=== PATIENT | female | born 2000 | race Caucasian/White ===

== ENCOUNTER → 2020-04-29 | Outpatient (CLI) | payer OTHER | END | disposition home or self-care (01) | LOC: LABWHC1 15:48 | PROVIDERS: ATTEND Emergency Medicine | DX: Z20.828 Contact with and (suspected) exposure to other viral communicable diseases (principal) | CPT/HCPCS: U0003; C9803 ==

== ENCOUNTER 2021-09-30 21:27 | Emergency (ER) | payer OTHER ==
[2021-09-30 22:06] VITALS: BP 138/72; PULSE 122; RESP 18; TEMP 101.5
[2021-09-30] MEDS ORDERED: IBUPROFEN 400 MG TAB PO STA (22:27)
--- NOTE | 2021-10-01 00:32 | ED ---
ENT HPI - General Chief complaint: ENT Stated complaint: Sore Throat,SOB Time Seen by Provider: 10/01/21 00:31 Source: patient Limitations: no limitations - History of Present Illness Initial comments: Helen is a healthy 21-year-old female who presents the emergency department today for evaluation of 1 day of sore throat, ear pressure, tender anterior cervical lymphadenopathy and fever. No nausea or vomiting. Patient reports a mild headache. She took one dose of Tylenol prior to coming to the hospital. - Related Data Allergies Allergy/AdvReac Type Severity Reaction Status Date / Time amoxicillin Allergy Rash/Hives Verified 09/30/21 22:03 Review of Systems ROS Statement: Those systems with pertinent positive or pertinent negative responses have been documented in the HPI. ROS Other: All systems not noted in ROS Statement are negative. Past Medical History Past Medical History: No Reported History History of Any Multi-Drug Resistant Organisms: None Reported Past Surgical History: No Surgical Hx Reported Past Psychological History: No Psychological Hx Reported Smoking Status: Vaper Past Alcohol Use History: Occasional Past Drug Use History: None Reported General Exam - General Exam Comments Initial Comments: Physical Exam GENERAL: Patient is well-developed and well-nourished. Patient is nontoxic and well- hydrated and is in no distress. HENT: Normocephalic, Atraumatic. Moist oral mucosa, no erythema or exudates TMs clear bilaterally EYES: PERRL, EOMI PULMONARY: Unlabored respirations. No audible rales rhonchi or wheezing was noted. CARDIOVASCULAR: Tachycardic, regular heart rate approximately 105 on evaluation ABDOMEN: Soft and nontender with normal bowel sounds. SKIN: Skin is clear with no lesions or rashes and otherwise unremarkable. : Deferred NEUROLOGIC: Patient is alert and oriented x3. Moving all extremities spontaneously MUSCULOSKELETAL: Normal extremities with adequate strength and full range of motion. No lower extremity swelling or edema. No calf tenderness. PSYCHIATRIC: Normal psychiatric evaluation. Limitations: no limitations Course Vital Signs 09/30/21 22:04 Temperature 101.5 F H Pulse Rate 122 H Respiratory 18 Rate Blood Pressure 138/72 O2 Sat by Pulse 99 Oximetry Medical Decision Making - Medical Decision Making Patient received Motrin for fever, patient was seen and evaluated she is negative for influenza A and COVID. Fever resolved upon my evaluation temperature is 98.6 oral, heart rate is improving. Supportive care was recommended I suspect the patient has a virus. I advised patient if she has greater than 5 days his symptoms she should be retested for mono. All questions pertaining care were answered return parameters were discussed patient is discharged home in stable condition. - Lab Data Lab Results 09/30/21 09/30/21 09/30/21 Range/Units 22:54 22:54 22:54 Coronavirus (PCR) Not Detected (Not Detectd) Influenza Type A RNA Not Detected (Not Detectd) Influenza Type B (PCR) Not Detected (Not Detectd) Group A Strep Rapid Negative (Negative) Disposition Clinical Impression: Viral illness Disposition: HOME SELF-CARE Condition: Stable Additional Instructions: Alternate Tylenol and Motrin every 3 hours, make sure drinking plenty of fluids to stay hydrated, try drinking warm liquids honey in it too severe throat. If her symptoms last crit in 5 days follow with her primary care or return to the ER for testing for mono Is patient prescribed a controlled substance at d/c from ED?: No Referrals: None,Stated [Primary Care Provider] - 1-2 days
== END 2021-10-01 02:21 | disposition home or self-care (01) ==
LOC: EC 21:27
DX: B34.9 Viral infection, unspecified (principal); F17.290 Nicotine dependence, other tobacco product, uncomplicated; Z20.822 Contact with and (suspected) exposure to COVID-19
CPT/HCPCS: 87081; 87430; 87502; 87635; 99284

== ENCOUNTER 2021-10-08 12:06 | Emergency (ER) | payer OTHER ==
[2021-10-08 12:36] VITALS: RESP 16; TEMP 98.2
--- NOTE | 2021-10-08 15:41 | ED ---
General Adult HPI - General Chief complaint: Recheck/Abnormal Lab/Rx Stated complaint: Revisit/Fever/Congestion/Ear Infection Time Seen by Provider: 10/08/21 13:20 Source: patient, RN notes reviewed, old records reviewed Mode of arrival: ambulatory Limitations: no limitations - History of Present Illness Initial comments: Patient is a 21-year-old female withpast medical history presents to emergency Department as a revisit for mono testing. For possibly one week, she has been having intermittent subjective fevers, mild sore throat, fatigue, as well as bilateral ear pressure. Was told by a previous ER physician to return if symptoms did not improve to get tested for mono. Covid, flu, strep throat testing previously were negative. Denies any significant cough. States that symptoms are somewhat improved but there is still persistent which is why she presents for further evaluation. Denies any chest pain, shortness breath, abdominal pain, nausea, vomiting. No known sick contacts. Presents for further evaluation at this time. - Related Data Home Medications Medication Instructions Recorded Confirmed V[place]ura 1 tab PO HS 10/08/21 10/08/21 Allergies Allergy/AdvReac Type Severity Reaction Status Date / Time amoxicillin Allergy Rash/Hives Verified 10/08/21 13:42 Review of Systems ROS Statement: Those systems with pertinent positive or pertinent negative responses have been documented in the HPI. Review of Systems: CONST: Denies fever EYES: Denies blurry vision ENT: Endorses nasal congestion C/V: Denies Chest pain RESP: Denies shortness of breath GI: Denies abdominal pain : Denies dysuria SKIN: Denies rash. MSK: Denies joint pain. NEURO: Denies headache ROS Other: All systems not noted in ROS Statement are negative. Past Medical History Past Medical History: No Reported History History of Any Multi-Drug Resistant Organisms: None Reported Past Surgical History: No Surgical Hx Reported Past Psychological History: No Psychological Hx Reported Smoking Status: Never smoker, Vaper Past Alcohol Use History: Occasional Past Drug Use History: None Reported General Exam - General Exam Comments Initial Comments: General: Appears in no acute distress. HEAD: Normal with no signs of head trauma. EYES: EOMI. ENT: Hearing grossly intact, normal oropharynx. Bilateral TMs are unremarkable. Posterior oropharynx within normal limits and unremarkable. No erythema. RESPIRATORY: Clear breath sounds bilaterally. No wheezes, rales, or rhonchi. No increased work of breathing. No hypoxia. C/V: Regular rate and rhythm. S1 and S2 auscultated, no edema, peripheral pulses 2+ and intact throughout ABD: Abd is soft, nontender, nondistended EXT: Normal range of motion, no obvious deformity SKIN: No rashes or lesions observed on exposed skin. NEURO: Alert and oriented 4. Limitations: no limitations Course Vital Signs 10/08/21 10/08/21 12:31 15:47 Temperature 98.2 F 98.2 F Pulse Rate 98 78 Respiratory 16 16 Rate Blood Pressure 141/78 131/78 O2 Sat by Pulse 98 98 Oximetry Medical Decision Making - Medical Decision Making Based on patient's presentation and physical exam, I'm concerned for upper respiratory illness. We will obtain heterophile antibody testing as well as repeat viral Covid, flu testing. Strep also be repeated. She was in agreement with this plan. Declines any analgesic medications at this time. Laboratory studies are remarkable for negative Covid, flu, heterophile, strep testing. I discussed results with the patient. I believe it is safer to be discharged home at this time. She'll continue [id number] decongestions at home. Will follow up with her PCP in the next 48 hours. I instructed the patient to follow up with their PCP in the next 3 days. I explained that the patient should return to the emergency department if they experience any worsening symptoms. Strict return precautions were discussed with the patient. The patient expressed understanding of these instructions. I answered all questions that the patient had. The patient was discharged home in good condition with their prescriptions and follow up information. - Lab Data Lab Results 10/08/21 10/08/21 10/08/21 Range/Units 13:44 13:44 14:20 Coronavirus (PCR) Not Detected (Not Detectd) Heterophile Antibody Negative (Negative) Influenza Type A RNA Not Detected (Not Detectd) Influenza Type B (PCR) Not Detected (Not Detectd) Group A Strep Rapid (Negative) 10/08/21 Range/Units 14:20 Coronavirus (PCR) (Not Detectd) Heterophile Antibody (Negative) Influenza Type A RNA (Not Detectd) Influenza Type B (PCR) (Not Detectd) Group A Strep Rapid Negative (Negative) Disposition Clinical Impression: Nasal congestion Disposition: HOME SELF-CARE Condition: Good Instructions (If sedation given, give patient instructions): Upper Respiratory Infection (ED) Is patient prescribed a controlled substance at d/c from ED?: No Referrals: None,Stated [Primary Care Provider] - 1-2 days Time of Disposition: 15:35
[2021-10-08 15:47] VITALS: BP 131/78; PULSE 78
== END 2021-10-08 15:47 | disposition home or self-care (01) ==
LOC: EC 12:06
DX: R09.81 Nasal congestion (principal); R50.9 Fever, unspecified; Z20.822 Contact with and (suspected) exposure to COVID-19; Z88.0 Allergy status to penicillin
CPT/HCPCS: 36415; 86308; 87081; 87430; 87502; 87635; 99283

== ENCOUNTER 2021-12-27 03:51 | Emergency (ER) | payer OTHER ==
[2021-12-27 04:24] VITALS: BP 131/83; PULSE 87; RESP 16; TEMP 98
[2021-12-27] MEDS ORDERED: SODIUM CHLORIDE 0.9% 1,000 ML IV STA (06:23)
[2021-12-27 06:42] LABS: Basophils # (A) 0.1 k/uL (0-0.2); Basophils % (A) 1 %; Eosinophils # (A) 0.1 k/uL (0-0.7); Eosinophils % (A) 1 %; HCT 43.4 % (34.0-46.0); HGB 14.1 gm/dL (11.4-16.0); Lymphocytes # (A) 2.3 k/uL (1.0-4.8); Lymphocytes % (A) 32 %; MCH 31.2 pg (25.0-35.0); MCHC 32.5 g/dL (31.0-37.0); MCV 95.9 fL (80.0-100.0); Mean Platelet Volume 6.7; Monocytes # (A) 0.4 k/uL (0-1.0); Monocytes % (A) 5 %; Neutrophils # (A) 4.3 k/uL (1.3-7.7); Neutrophils % (A) 59 %; Platelet Count 327 k/uL (150-450); RBC 4.53 m/uL (3.80-5.40); WBC 7.3 k/uL (3.8-10.6)
[2021-12-27 06:48] LABS: Appearance,Urine Cloudy (Clear); Bacteria,Urine Rare /hpf; Bilirubin,Urine Negative (Negative); Blood,Urine Negative (Negative); Color,Urine Yellow; Glucose,Urine (UA) Negative (Negative); Ketones,Urine Negative (Negative); Leukocyte Esterase,Urine Negative (Negative); Mucus,Urine Rare /hpf; Nitrite,Urine Negative (Negative); Protein,Urine Negative (Negative); RBC,Urine 1 /hpf (0-5); Specific Gravity,Urine 1.022 (1.001-1.035); Squamous Epithelial Cell,Urine 9 /hpf (0-4); Urobilinogen,Urine <2.0 mg/dL (<2.0); WBC,Urine 2 /hpf (0-5)
[2021-12-27] MEDS ORDERED: diphenhydrAMINE 50 MG/ML 1 ML VIAL IVP STA (06:49)
[2021-12-27] MEDS ORDERED: METOCLOPRAMIDE 5 MG/ML 2 ML VIAL IVP STA (06:49)
[2021-12-27] MEDS ORDERED: MAG HYDROX/AL HYDROX/SIMETH 30 ML, HYOSCYAMINE ELIXIR 10 ML, LIDOCAINE VISCOUS 2% 10 ML PO STA ×3 (06:49)
[2021-12-27 06:51] LABS: ALT 29 U/L (4-34); AST 27 U/L (14-36); African American GFR (CKD) >90 (>60 ml/min/1.73 sqM); Albumin 4.4 g/dL (3.5-5.0); Alkaline Phosphatase 64 U/L (38-126); Amylase 84 U/L (30-110); Anion Gap 10 mmol/L; Blood Urea Nitrogen 12 mg/dL (7-17); Carbon Dioxide 24 mmol/L (22-30); Chloride 105 mmol/L (98-107); Glucose 94 mg/dL (74-99); Lipase 104 U/L (23-300); Non-African American GFR(CKD) >90 (>60 ml/min/1.73 sqM); Potassium 3.9 mmol/L (3.5-5.1); Sodium 139 mmol/L (137-145); Total Bilirubin 0.4 mg/dL (0.2-1.3); Total Protein 7.6 g/dL (6.3-8.2)
--- NOTE | 2021-12-27 06:51 | ED ---
Abdominal Pain HPI - General Chief Complaint: Abdominal Pain Stated Complaint: abd pain, back pain Time Seen by Provider: 12/27/21 06:08 Source: patient, RN notes reviewed Mode of arrival: ambulatory Limitations: no limitations - History of Present Illness Initial Comments: This a 29-year-old female presents emergency Department chief complaint of upper abdominal pain. Patient states started around 3 AM. Patient states that it does wax and wane feels that something is twisting her stomach. Patient states that radiates down states her back. She has meant to some nausea vomiting no chest pain or shortness breath she does have known history of reflux in which she occasionally takes omeprazole she does not take it daily as prescribed. She has no cords dysuria hematuria diarrhea constipation denies any chance . She states symptoms are worse when she lays down. - Related Data Home Medications Medication Instructions Recorded Confirmed [place] 1 tab PO HS 10/08/21 10/08/21 Previous Rx's Medication Instructions Recorded Omeprazole [PriLOSEC] 40 mg PO DAILY #14 cap 12/27/21 Ondansetron Odt [Zofran Odt] 4 mg PO Q8HR PRN #10 tab 12/27/21 Sucralfate [Carafate] 1 gm PO BID #14 tablet 12/27/21 Allergies Allergy/AdvReac Type Severity Reaction Status Date / Time amoxicillin Allergy Rash/Hives Verified 10/08/21 13:42 Review of Systems ROS Statement: Those systems with pertinent positive or pertinent negative responses have been documented in the HPI. ROS Other: All systems not noted in ROS Statement are negative. Past Medical History Past Medical History: No Reported History History of Any Multi-Drug Resistant Organisms: None Reported Past Surgical History: No Surgical Hx Reported Past Psychological History: No Psychological Hx Reported Smoking Status: Never smoker, Vaper Past Alcohol Use History: Occasional Past Drug Use History: None Reported General Exam Limitations: no limitations General appearance: alert, in no apparent distress Head exam: Present: atraumatic, normocephalic, normal inspection Eye exam: Present: normal appearance, PERRL, EOMI. Absent: scleral icterus, conjunctival injection, periorbital swelling ENT exam: Present: normal exam, normal oropharynx, mucous membranes moist Neck exam: Present: normal inspection, full ROM. Absent: tenderness, meningismus, lymphadenopathy Respiratory exam: Present: normal lung sounds bilaterally. Absent: respiratory distress, wheezes, rales, rhonchi, stridor Cardiovascular Exam: Present: regular rate, normal rhythm, normal heart sounds. Absent: systolic murmur, diastolic murmur, rubs, gallop, clicks GI/Abdominal exam: Present: soft, tenderness, normal bowel sounds. Absent: distended, guarding, rebound, rigid Back exam: Absent: CVA tenderness (R), CVA tenderness (L) Neurological exam: Present: alert Skin exam: Present: warm, dry, intact, normal color. Absent: rash Course Vital Signs 12/27/21 04:22 Temperature 98 F Pulse Rate 87 Respiratory 16 Rate Blood Pressure 131/83 O2 Sat by Pulse 99 Oximetry Medical Decision Making - Medical Decision Making 20-year-old presents from for abdominal pain. Patient feels better after GI cocktail, labs unremarkable. Patient we discharged she is advised take her omeprazole daily as directed she was also given carefully return parameters were discussed. - Lab Data Result diagrams: 12/27/21 06:35 12/27/21 06:35 Lab Results 12/27/21 12/27/21 12/27/21 Range/Units 06:35 06:35 06:35 WBC 7.3 (3.8-10.6) k/uL RBC 4.53 (3.80-5.40) m/uL Hgb 14.1 (11.4-16.0) gm/dL Hct 43.4 (34.0-46.0) % MCV 95.9 (80.0-100.0) fL MCH 31.2 (25.0-35.0) pg MCHC 32.5 (31.0-37.0) g/dL RDW 12.0 (11.5-15.5) % Plt Count 327 (150-450) k/uL MPV 6.7 Neutrophils % 59 % Lymphocytes % 32 % Monocytes % 5 % Eosinophils % 1 % Basophils % 1 % Neutrophils # 4.3 (1.3-7.7) k/uL Lymphocytes # 2.3 (1.0-4.8) k/uL Monocytes # 0.4 (0-1.0) k/uL Eosinophils # 0.1 (0-0.7) k/uL Basophils # 0.1 (0-0.2) k/uL Sodium 139 (137-145) mmol/L Potassium 3.9 (3.5-5.1) mmol/L Chloride 105 (98-107) mmol/L Carbon Dioxide 24 (22-30) mmol/L Anion Gap 10 mmol/L BUN 12 (7-17) mg/dL Creatinine 0.77 (0.52-1.04) mg/dL Est GFR (CKD-EPI)AfAm >90 (>60 ml/min/1.73 sqM) Est GFR (CKD-EPI)NonAf >90 (>60 ml/min/1.73 sqM) Glucose 94 (74-99) mg/dL Plasma Lactic Acid [place] (0.7-2.0) mmol/L Calcium 9.0 (8.4-10.2) mg/dL Total Bilirubin 0.4 (0.2-1.3) mg/dL AST 27 (14-36) U/L ALT 29 (4-34) U/L Alkaline Phosphatase 64 (38-126) U/L Total Protein 7.6 (6.3-8.2) g/dL Albumin 4.4 (3.5-5.0) g/dL Amylase 84 (30-110) U/L Lipase 104 (23-300) U/L Urine Color Yellow Urine Appearance Cloudy H (Clear) Urine pH 5.0 (5.0-8.0) Ur Specific [place] 1.022 (1.001-1.035) Urine Protein Negative (Negative) Urine Glucose (UA) Negative (Negative) Urine Ketones Negative (Negative) Urine Blood Negative (Negative) Urine Nitrite Negative (Negative) Urine Bilirubin Negative (Negative) Urine Urobilinogen <2.0 (<2.0) mg/dL Ur Leukocyte Esterase Negative (Negative) Urine RBC 1 (0-5) /hpf Urine WBC 2 (0-5) /hpf Ur Squamous Epith Cells 9 H (0-4) /hpf Urine Bacteria Rare H (None) /hpf Urine Mucus Rare H (None) /hpf Urine HCG, Qual (Not Detectd) 12/27/21 12/27/21 Range/Units 06:35 06:35 WBC (3.8-10.6) k/uL RBC (3.80-5.40) m/uL Hgb (11.4-16.0) gm/dL Hct (34.0-46.0) % MCV (80.0-100.0) fL MCH (25.0-35.0) pg MCHC (31.0-37.0) g/dL RDW (11.5-15.5) % Plt Count (150-450) k/uL MPV Neutrophils % % Lymphocytes % % Monocytes % % Eosinophils % % Basophils % % Neutrophils # (1.3-7.7) k/uL Lymphocytes # (1.0-4.8) k/uL Monocytes # (0-1.0) k/uL Eosinophils # (0-0.7) k/uL Basophils # (0-0.2) k/uL Sodium (137-145) mmol/L Potassium (3.5-5.1) mmol/L Chloride (98-107) mmol/L Carbon Dioxide (22-30) mmol/L Anion Gap mmol/L BUN (7-17) mg/dL Creatinine (0.52-1.04) mg/dL Est GFR (CKD-EPI)AfAm (>60 ml/min/1.73 sqM) Est GFR (CKD-EPI)NonAf (>60 ml/min/1.73 sqM) Glucose (74-99) mg/dL Plasma Lactic Acid [place] 1.6 (0.7-2.0) mmol/L Calcium (8.4-10.2) mg/dL Total Bilirubin (0.2-1.3) mg/dL AST (14-36) U/L ALT (4-34) U/L Alkaline Phosphatase (38-126) U/L Total Protein (6.3-8.2) g/dL Albumin (3.5-5.0) g/dL Amylase (30-110) U/L Lipase (23-300) U/L Urine Color Urine Appearance (Clear) Urine pH (5.0-8.0) Ur Specific [place] (1.001-1.035) Urine Protein (Negative) Urine Glucose (UA) (Negative) Urine Ketones (Negative) Urine Blood (Negative) Urine Nitrite (Negative) Urine Bilirubin (Negative) Urine Urobilinogen (<2.0) mg/dL Ur Leukocyte Esterase (Negative) Urine RBC (0-5) /hpf Urine WBC (0-5) /hpf Ur Squamous Epith Cells (0-4) /hpf Urine Bacteria (None) /hpf Urine Mucus (None) /hpf Urine HCG, Qual Not Detected (Not Detectd) Disposition Clinical Impression: Gastritis Disposition: HOME SELF-CARE Condition: Stable Instructions (If sedation given, give patient instructions): Gastritis (ED), Diet for Stomach Ulcers and Gastritis (ED) Additional Instructions: Please return to the Emergency Department if symptoms worsen or any other concerns. Prescriptions: Sucralfate [Carafate] 1 gm PO BID #14 tablet Omeprazole [PriLOSEC] 40 mg PO DAILY #14 cap Ondansetron Odt [Zofran Odt] 4 mg PO Q8HR PRN #10 tab PRN Reason: Nausea Is patient prescribed a controlled substance at d/c from ED?: No Referrals: None,Stated [Primary Care Provider] - 1-2 days Time of Disposition: 07:45
== END 2021-12-27 08:00 | disposition home or self-care (01) ==
LOC: EC 03:51
DX: K29.70 Gastritis, unspecified, without bleeding (principal); Z88.0 Allergy status to penicillin
CPT/HCPCS: 36415; 80053; 82150; 83605; 83690; 85025; 81001; 81025; 99284; 96374; 96375; 96361; J1200; J2765

== ENCOUNTER 2022-05-08 01:30 | Emergency (ER) | payer OTHER ==
[2022-05-08 01:34] VITALS: TEMP 97.5
[2022-05-08] MEDS ORDERED: SODIUM CHLORIDE 0.9% 1,000 ML IV STA (02:22)
[2022-05-08] MEDS ORDERED: ONDANSETRON 4 MG/2 ML VIAL IVP STA (02:22)
[2022-05-08] MEDS ORDERED: MAG HYDROX/AL HYDROX/SIMETH 30 ML, HYOSCYAMINE ELIXIR 10 ML, LIDOCAINE VISCOUS 2% 10 ML PO STA ×3 (02:23)
[2022-05-08] MEDS ORDERED: PANTOPRAZOLE 40 MG/10 ML VIAL IVP STA (02:23)
--- NOTE | 2022-05-08 02:27 | ED ---
Nausea/Vomiting/Diarrhea HPI - General Chief complaint: Nausea/Vomiting/Diarrhea Stated complaint: Abdominal pain, NVD Time Seen by Provider: 05/08/22 02:13 Source: patient, RN notes reviewed, old records reviewed Mode of arrival: ambulatory Limitations: no limitations - History of Present Illness Initial comments: This is a 22-year-old nontoxic-appearing female presents to the emergency room with 2 friends complaining of nausea vomiting and diarrhea tonight. States has had 4-5 episodes of each. Emesis is watery and bili is diarrhea is brown in co ora. States also has epigastric abdominal pain. Has had this type of pain in the past and told she likely has a gastric ulcer. She does take omeprazole daily. Denies cigarette smoking or alcohol use but does vape. Denies any fevers. Denies any dysuria. MD complaint: nausea, vomiting, diarrhea, abdominal pain (Gastric) -: days(s) (1) Description of Vomiting: food contents, watery Description of Diarrhea: water Associated Abdominal Pain: Yes Location: epigastric Radiation: none Severity scale (1-10): 10 Quality: constant Improves with: none Context: other (History of gastric ulcer) - Related Data Home Medications Medication Instructions Recorded Confirmed Vestura 1 tab PO HS 10/08/21 10/08/21 Previous Rx's Medication Instructions Recorded Omeprazole [PriLOSEC] 40 mg PO DAILY #14 cap 12/27/21 Ondansetron Odt [Zofran Odt] 4 mg PO Q8HR PRN #10 tab 12/27/21 Sucralfate [Carafate] 1 gm PO BID #14 tablet 12/27/21 Allergies Allergy/AdvReac Type Severity Reaction Status Date / Time amoxicillin Allergy Rash/Hives Verified 05/08/22 01:34 Review of Systems ROS Statement: Those systems with pertinent positive or pertinent negative responses have been documented in the HPI. ROS Other: All systems not noted in ROS Statement are negative. Past Medical History Past Medical History: No Reported History Additional Past Medical History / Comment(s): PCOS History of Any Multi-Drug Resistant Organisms: None Reported Past Surgical History: No Surgical Hx Reported Past Psychological History: No Psychological Hx Reported Smoking Status: Vaper Past Alcohol Use History: Occasional Past Drug Use History: None Reported General Exam Limitations: no limitations General appearance: alert, in no apparent distress Head exam: Present: atraumatic, normocephalic Eye exam: Present: normal appearance. Absent: scleral icterus, conjunctival injection, periorbital swelling, periorbital tenderness ENT exam: Present: mucous membranes moist Expanded Mouth exam: Present: tongue normal, tongue elevation. Absent: drooling, trismus, muffled voice Throat exam: other (Erythematous oropharynx). negative: tonsillomegaly, tonsillar exudate, R peritonsillar mass, L peritonsillar mass Neck exam: Present: normal inspection, full ROM. Absent: tenderness, meningismus, lymphadenopathy Respiratory exam: Present: normal lung sounds bilaterally. Absent: respiratory distress, wheezes, rales, rhonchi, stridor, chest wall tenderness, accessory muscle use Cardiovascular Exam: Present: regular rate GI/Abdominal exam: Present: soft, tenderness (Epigastric), normal bowel sounds. Absent: distended, guarding, rebound, rigid Extremities exam: Present: normal inspection, full ROM, normal capillary refill. Absent: tenderness, pedal edema Back exam: Present: normal inspection, full ROM. Absent: tenderness, CVA tenderness (R), CVA tenderness (L), rash noted Neurological exam: Present: alert, oriented X3 Psychiatric exam: Present: normal affect, normal mood Skin exam: Present: warm, dry, intact, normal color. Absent: rash, cyanosis, diaphoretic, petechiae, pallor Course Vital Signs 05/08/22 01:32 Temperature 97.5 F L Pulse Rate 97 Respiratory 18 Rate Blood Pressure 128/89 O2 Sat by Pulse 99 Oximetry Medical Decision Making - Medical Decision Making CBC and electrolytes are unremarkable. Urinalysis is cloudy with small leukocyte esterase, negative nitrites and occasional bacteria. Urine was sent for cultures as patient denies any dysuria. X-ray interpreted by me shows no evidence of free air or obstruction. No abnormal calcifications. Radiologist interpretation no acute abdomen. This is likely a viral gastroenteritis. Patient was given IV fluids, Protonix, Zofran and a GI cocktail with relief. No vomiting or diarrhea in the emergency room. Abdomen is soft and nontender. She was given a take-home pack of Zofran and increase her fluid intake. Directed to follow up with her primary care doctor or return to the emergency room with any new or concerning symptoms. She is agreeable to this plan of care. Family at bedside. Case discussed with Dr. Jeter. - Lab Data Result diagrams: 05/08/22 02:47 05/08/22 02:47 Lab Results 05/08/22 05/08/22 05/08/22 Range/Units 02:47 02:47 02:47 WBC 8.6 (3.8-10.6) k/uL RBC 4.60 (3.80-5.40) m/uL Hgb 14.7 (11.4-16.0) gm/dL Hct 42.3 (34.0-46.0) % MCV 92.0 (80.0-100.0) fL MCH 31.9 (25.0-35.0) pg MCHC 34.7 (31.0-37.0) g/dL RDW 11.9 (11.5-15.5) % Plt Count 304 (150-450) k/uL MPV 7.1 Neutrophils % 63 % Lymphocytes % 26 % Monocytes % 8 % Eosinophils % 1 % Basophils % 1 % Neutrophils # 5.4 (1.3-7.7) k/uL Lymphocytes # 2.2 (1.0-4.8) k/uL Monocytes # 0.7 (0-1.0) k/uL Eosinophils # 0.1 (0-0.7) k/uL Basophils # 0.1 (0-0.2) k/uL Sodium 139 (137-145) mmol/L Potassium 4.0 (3.5-5.1) mmol/L Chloride 107 (98-107) mmol/L Carbon Dioxide 23 (22-30) mmol/L Anion Gap 9 mmol/L BUN 13 (7-17) mg/dL Creatinine 0.71 (0.52-1.04) mg/dL Est GFR (CKD-EPI)AfAm >90 (>60 ml/min/1.73 sqM) Est GFR (CKD-EPI)NonAf >90 (>60 ml/min/1.73 sqM) Glucose 92 (74-99) mg/dL Calcium 8.5 (8.4-10.2) mg/dL Total Bilirubin 0.7 (0.2-1.3) mg/dL AST 22 (14-36) U/L ALT 19 (4-34) U/L Alkaline Phosphatase 58 (38-126) U/L Total Protein 7.4 (6.3-8.2) g/dL Albumin 4.4 (3.5-5.0) g/dL Amylase 95 (30-110) U/L Lipase 210 (23-300) U/L Urine Color Yellow Urine Appearance Cloudy H (Clear) Urine pH 5.5 (5.0-8.0) Ur Specific [place] 1.030 (1.001-1.035) Urine Protein Trace H (Negative) Urine Glucose (UA) Negative (Negative) Urine Ketones Negative (Negative) Urine Blood Trace H (Negative) Urine Nitrite Negative (Negative) Urine Bilirubin Negative (Negative) Urine Urobilinogen <2.0 (<2.0) mg/dL Ur Leukocyte Esterase Small H (Negative) Urine RBC 2 (0-5) /hpf Urine WBC 3 (0-5) /hpf Ur Squamous Epith Cells 11 H (0-4) /hpf Urine Bacteria Occasional H (None) /hpf Hyaline Casts 1 (0-2) /lpf Urine Mucus Many H (None) /hpf Disposition Clinical Impression: Gastroenteritis Disposition: HOME SELF-CARE Condition: Good Instructions (If sedation given, give patient instructions): Acute Nausea and Vomiting (ED), Acute Diarrhea (ED) Additional Instructions: Continue taking your omeprazole. Zofran as needed for any nausea vomiting. Increase your fluid intake. Advance your diet slowly starting with bananas, rice, applesauce and toast. Follow-up with your primary care doctor next week. Return to the emergency room with any new or concerning symptoms. Is patient prescribed a controlled substance at d/c from ED?: No Referrals: None,Stated [Primary Care Provider] - 1-2 days Time of Disposition: 03:30
[2022-05-08 03:00] LABS: Basophils # (A) 0.1 k/uL (0-0.2); Basophils % (A) 1 %; Eosinophils # (A) 0.1 k/uL (0-0.7); Eosinophils % (A) 1 %; HCT 42.3 % (34.0-46.0); HGB 14.7 gm/dL (11.4-16.0); Lymphocytes # (A) 2.2 k/uL (1.0-4.8); Lymphocytes % (A) 26 %; MCH 31.9 pg (25.0-35.0); MCHC 34.7 g/dL (31.0-37.0); Mean Platelet Volume 7.1; Monocytes # (A) 0.7 k/uL (0-1.0); Monocytes % (A) 8 %; Neutrophils # (A) 5.4 k/uL (1.3-7.7); Neutrophils % (A) 63 %; Platelet Count 304 k/uL (150-450); RDW 11.9 % (11.5-15.5); WBC 8.6 k/uL (3.8-10.6)
--- NOTE | 2022-05-08 03:00 | XR ---
EXAMINATION TYPE: XR KUB DATE OF EXAM: 05/08/2022 COMPARISON: NONE HISTORY: Abdominal pain TECHNIQUE: 2 views upright FINDINGS: There is no sign of intestinal obstruction or pneumoperitoneum. Fecal pattern is normal. No evidence of a mass. No pathologic calcification of the kidneys. Lung bases are clear. IMPRESSION: Nonacute abdomen.
[2022-05-08 03:09] LABS: ALT 19 U/L (4-34); AST 22 U/L (14-36); African American GFR (CKD) >90 (>60 ml/min/1.73 sqM); Albumin 4.4 g/dL (3.5-5.0); Alkaline Phosphatase 58 U/L (38-126); Amylase 95 U/L (30-110); Anion Gap 9 mmol/L; Blood Urea Nitrogen 13 mg/dL (7-17); Calcium 8.5 mg/dL (8.4-10.2); Carbon Dioxide 23 mmol/L (22-30); Chloride 107 mmol/L (98-107); Glucose 92 mg/dL (74-99); Lipase 210 U/L (23-300); Non-African American GFR(CKD) >90 (>60 ml/min/1.73 sqM); Sodium 139 mmol/L (137-145); Total Bilirubin 0.7 mg/dL (0.2-1.3); Total Protein 7.4 g/dL (6.3-8.2)
[2022-05-08 03:12] LABS: Appearance,Urine Cloudy (Clear); Bacteria,Urine Occasional /hpf; Bilirubin,Urine Negative (Negative); Blood,Urine Trace (Negative); Color,Urine Yellow; Glucose,Urine (UA) Negative (Negative); Hyaline Casts,Urine 1 /lpf (0-2); Ketones,Urine Negative (Negative); Leukocyte Esterase,Urine Small (Negative); Mucus,Urine Many /hpf; Nitrite,Urine Negative (Negative); PH, Urine 5.5 (5.0-8.0); Protein,Urine Trace (Negative); RBC,Urine 2 /hpf (0-5); Squamous Epithelial Cell,Urine 11 /hpf (0-4); Urobilinogen,Urine <2.0 mg/dL (<2.0); WBC,Urine 3 /hpf (0-5)
[2022-05-08] MEDS ORDERED: ONDANSETRON 4 MG ODT STARTER PACK 2 TAB BTL PO STA (03:30)
[2022-05-08 05:30] VITALS: BP 139/67; PULSE 81; RESP 15
== END 2022-05-08 05:32 | disposition home or self-care (01) ==
LOC: EC 01:30
DX: K52.9 Noninfective gastroenteritis and colitis, unspecified (principal); R11.2 Nausea with vomiting, unspecified; Z88.1 Allergy status to other antibiotic agents
CPT/HCPCS: 36415; 80053; 82150; 83690; 85025; 81001; 74018; 99284; 96374; 96375; 96361; J2405; S0119; C9113

== ENCOUNTER → 2022-11-27 | Outpatient (CLI) | payer OTHER ==
--- NOTE | 2022-11-27 10:17 | XR ---
EXAMINATION TYPE: XR cervical spine comp DATE OF EXAM: 11/27/2022 CLINICAL HISTORY: pain COMPARISON: NONE TECHNIQUE: Frontal, lateral, oblique, swimmers, and open mouth view of the cervical spine are obtaine d. FINDINGS: There is reversal of the normal cervical lordosis which can be seen in patients with muscle spasticity. The cervical spine is visualized in its entirety from C1 thru the top of T1 level. It is satisfactory in alignment without evidence of acute fracture or dislocation. Disc spaces are well p reserved. The C1-C2 articulation is unremarkable on the open mouth view. The oblique images are with in normal limits. IMPRESSION: Correlate for muscle spasticity. No evidence for acute fracture or dislocation.
[2022-11-27 13:37] LABS: Basophils # (A) 0.07 X 10*3/uL (0.00-0.10); Basophils % (A) 1.1 %; Eosinophils # (A) 0.08 X 10*3/uL (0.04-0.35); Eosinophils % (A) 1.3 %; HCT 44.6 % (37.2-46.3); HGB 14.4 d/dL (12.0-15.0); Lymphocytes # (A) 2.56 X 10*3/uL (0.90-5.00); Lymphocytes % (A) 40.1 %; MCH 31.9 pg (27.0-32.0); MCHC 32.3 d/dL (32.0-37.0); MCV 98.7 FL (80.0-97.0); Mean Platelet Volume 9.3 FL (9.5-12.2); Monocytes % (A) 7.8 %; NRBC Per 100 WBC 0 X 10*3/uL (0.00-0.01); Neutrophils # (A) 3.17 X 10*3/uL (1.80-7.70); Neutrophils % (A) 49.5 %; Platelet Count 298 X 10*3/uL (140-440); RBC 4.52 X 10*6/uL (4.10-5.20); RDW 11.5 % (11.5-14.5); WBC 6.39 X 10*3/uL (4.50-10.00)
[2022-11-27 13:43] LABS: ALT 26 U/L (8-44); AST 20 U/L (13-35); Albumin 4.5 d/dL (3.8-4.9); Albumin/Globulin Ratio 1.41 Ratio (1.60-3.17); Alkaline Phosphatase 61 U/L (41-126); BUN/Creat Ratio 14.33 Ratio (12.00-20.00); Blood Urea Nitrogen 12.9 mg/dL (9.0-27.0); C Reactive Protein <0.30 mg/dL (0.00-0.80); Calcium 9.7 mg/dL (8.7-10.3); Carbon Dioxide 22.1 mmol/L (21.6-31.8); Chloride 105 mmol/L (96-109); Ferritin 73.2 ng/mL (10.0-291.0); Globulin 3.2 d/dL (1.6-3.3); Glucose 88 mg/dL (70-110); Iron 83 UG/DL (50-170); Potassium 4.3 mmol/L (3.5-5.5); Sodium 139 mmol/L (135-145); T4, Free (Free Thyroxine) 1.31 ng/dL (0.80-1.80); Thyroid Peroxidase Antibodies <9.0 U/mL (0.0-33.0); Total Bilirubin 0.4 mg/dL (0.3-1.2); Total Protein 7.7 d/dL (6.2-8.2)
== END | disposition home or self-care (01) ==
LOC: LABWHC1 09:02
PROVIDERS: ATTEND Family Medicine
DX: G43.909 Migraine, unspecified, not intractable, without status migrainosus (principal); E28.2 Polycystic ovarian syndrome; M54.2 Cervicalgia
CPT/HCPCS: 36415; 72050; 80053; 82728; 83036; 83540; 84432; 84439; 84445; 84480; 85025; 86140; 86376

== ENCOUNTER 2023-10-20 13:21 | Emergency (ER) | payer OTHER ==
--- NOTE | 2023-10-20 13:31 | ED ---
General Adult HPI - General Stated complaint: near syncope Time Seen by Provider: 10/20/23 13:21 Source: patient, RN notes reviewed, old records reviewed - History of Present Illness Initial comments: This is a 23-year-old female who presents to the emergency department she is 15 weeks . Patient states she has been vomiting every day since the beginning of her . Patient states today she was at work and got l ightheaded she did not pass out but she felt like she might. Patient states she had a touch of left upper flank pain that is not that significant. Patient denies any lower abdominal pain patient has any vaginal bleeding. Patient has any chest pain difficulty breathing or shortness of breath. Patient has any significant swelling to her legs or any calf tenderness. Patient denies any recent fever chills or cough. Patient got Zofran in the ambulance and feels considerably better - Related Data Home Medications Medication Instructions Recorded Confirmed Vestura 1 tab PO HS 10/08/21 10/08/21 Previous Rx's Medication Instructions Recorded Omeprazole [PriLOSEC] 40 mg PO DAILY #14 cap 12/27/21 Ondansetron Odt [Zofran Odt] 4 mg PO Q8HR PRN #10 tab 12/27/21 Sucralfate [Carafate] 1 gm PO BID #14 tablet 12/27/21 Cyclobenzaprine [Flexeril] 5 mg PO TID PRN #24 tablet 07/18/22 Ketorolac [Toradol] 10 mg PO Q8HR #15 tab 07/18/22 Cephalexin [Keflex] 500 mg PO Q6HR #28 cap 10/20/23 Allergies Allergy/AdvReac Type Severity Reaction Status Date / Time amoxicillin Allergy Rash/Hives Verified 10/20/23 13:42 dexamethasone AdvReac Unknown Verified 10/20/23 13:42 Review of Systems ROS Statement: Those systems with pertinent positive or pertinent negative responses have been documented in the HPI. ROS Other: All systems not noted in ROS Statement are negative. Past Medical History Past Medical History: No Reported History, GERD/Reflux Additional Past Medical History / Comment(s): PCOS History of Any Multi-Drug Resistant Organisms: None Reported Past Surgical History: No Surgical Hx Reported Past Psychological History: No Psychological Hx Reported Smoking Status: Vaper Past Alcohol Use History: Occasional Past Drug Use History: None Reported, Marijuana General Exam - General Exam Comments Initial Comments: GENERAL: Patient is well-developed and well-nourished. Patient is nontoxic and well- hydrated and is in no acute distress. ENT: Neck is soft and supple. No significant lymphadenopathy is noted. Oropharynx is clear. Moist mucous membranes. Neck has full range of motion without eliciting any pain. EYES: The sclera were anicteric and conjunctiva were pink and moist. Extraocular movements were intact and pupils were equal round and reactive to light. Eyelids were unremarkable. PULMONARY: Unlabored respirations. Good breath sounds bilaterally. No audible rales rhonchi or wheezing was noted. CARDIOVASCULAR: There is a regular rate and rhythm without any murmurs gallops or rubs. ABDOMEN: Soft and nontender with normal bowel sounds. Does have a gravid abdomen just below the umbilicus SKIN: Skin is clear with no lesions or rashes and otherwise unremarkable. NEUROLOGIC: Patient is alert and oriented x3. Cranial nerves II through XII are grossly intact. Motor and sensory are also intact. Normal speech, volume and content. Symmetrical smile. MUSCULOSKELETAL: Normal extremities with adequate strength and full range of motion. LYMPHATICS: No significant lymphadenopathy is noted PSYCHIATRIC: Normal psychiatric evaluation. Course Vital Signs 10/20/23 10/20/23 10/20/23 13:38 14:02 15:17 Temperature 97.9 F Pulse Rate 56 L 74 Pulse Rate [ 65 Pulse Oximetery ] Respiratory 18 18 Rate Blood Pressure 98/55 120/77 Blood Pressure 127/73 [Right Arm Sitting] Blood Pressure 128/82 [Right Arm Standing] Blood Pressure 98/58 [Right Arm Supine] O2 Sat by Pulse 96 100 Oximetry Medical Decision Making - Medical Decision Making EKG is interpreted by myself read EKG shows a sinus bradycardia 53 bpm parables 136 QRS is 89 QT interval is 407 QTc is 489. EKG shows no ST segment elevation Was pt. sent in by a medical professional or institution (, PA, CLINICAL PHARMACOLOGIST, urgent care, hospital, or skilled nursing...) When possible be specific @ -No Did you speak to anyone other than the patient for history (EMS, parent, family, police, friend...)? What history was obtained from this source @ -No Did you review nursing and triage notes (agree or disagree)? Why? @ -I reviewed and agree with nursing and triage notes Were old charts reviewed (outside hosp., previous admission, EMS record, old EKG, old radiological studies, urgent care reports/EKG's, skilled nursing records)? Report findings @ -I compared today's urinalysis with prior urinalysis today patient has quite a bit of red cells and she states she is not having any vaginal bleeding. Differential Diagnosis (chest pain, altered mental status, abdominal pain women, abdominal pain men, vaginal bleeding, weakness, fever, dyspnea, syncope, headache, dizziness, GI bleed, back pain, seizure, CVA, palpatations, mental health, musculoskeletal)? @ -Hyperemesis , viral syndrome, gastritis, gastroenteritis, this is not an all-inclusive list EKG interpreted by me (3pts min.). @ -As above X-rays interpreted by me (1pt min.). @ -None done CT interpreted by me (1pt min.). @ -None done U/S interpreted by me (1pt. min.). @ -None done What testing was considered but not performed or refused? (CT, X-rays, U/S, labs)? Why? @ -None What meds were considered but not given or refused? Why? @ -None Did you discuss the management of the patient with other professionals (professionals i.e. , PA, CLINICAL PHARMACOLOGIST, lab, RT, psych nurse, social worker masters, farmworker poultry, teacher, textile technical officer, medical case worker)? Give summary @ -No Was smoking cessation discussed for >3mins.? @ -No Was critical care preformed (if so, how long)? @ -No Were there social determinants of health that impacted care today? How? (Homelessness, low income, unemployed, alcoholism, drug addiction, transportati on, low edu. Level, literacy, decrease access to med. care, half-way, rehab)? @ -No Was there de-escalation of care discussed even if they declined (Discuss DNR or withdrawal of care, Hospice)? DNR status @ -No What co-morbidities impacted this encounter? (DM, HTN, Smoking, COPD, CAD, Cancer, CVA, ARF, Chemo, Hep., AIDS, mental health diagnosis, sleep apnea, morbid obesity)? @ -None Was patient admitted / discharged? Hospital course, mention meds given and route, prescriptions, significant lab abnormalities, going to OR and other pertinent info. @ -Patient received Zofran on her way and in the ambulance. She was feeling considerably better. Patient got a liter and half of fluid while in the em ergency department. Patient's urine showed quite a bit of red blood cells and I did give her a gram of Rocephin since this could be secondary to infection. Urine will be cultured. Undiagnosed new problem with uncertain prognosis? @ -No Drug Therapy requiring intensive monitoring for toxicity (Heparin, Nitro, Insulin, Cardizem)? @ -No Were any procedures done? @ -No Diagnosis/symptom? @ -Hyperemesis Acute, or Chronic, or Acute on Chronic? @ -Acute Uncomplicated (without systemic symptoms) or Complicated (systemic symptoms)? @ -Complicated Side effects of treatment? @ -No Exacerbation, Progression, or Severe Exacerbation? @ -No Poses a threat to life or bodily function? How? (Chest pain, [place], [place], pneumonia, PE, COPD, DKA, ARF, appy, cholecystitis, CVA, Diverticulitis, Homicidal, [place] icidal, threat to staff... and all critical care pts) @ -No Diagnosis/symptom? @ -Urinary tract infection Acute, or Chronic, or Acute on Chronic? @ -Acute Uncomplicated (without systemic symptoms) or Complicated (systemic symptoms)? @ -Uncomplicated Side effects of treatment? @ -None Exacerbation, Progression, or Severe Exacerbation] @ -No Poses a threat to life or bodily function? @ -No - Lab Data Result diagrams: 10/20/23 13:52 10/20/23 13:52 Lab Results 10/20/23 10/20/23 10/20/23 Range/Units 13:52 13:52 15:16 WBC 8.9 (3.8-10.6) k/uL RBC 4.05 (3.80-5.40) m/uL Hgb 12.9 (11.4-16.0) gm/dL Hct 39.0 (34.0-46.0) % MCV 96.2 (80.0-100.0) fL MCH 31.8 (25.0-35.0) pg MCHC 33.0 (31.0-37.0) g/dL RDW 13.2 (11.5-15.5) % Plt Count 305 (150-450) k/uL MPV 7.5 Neutrophils % 75 % Lymphocytes % 19 % Monocytes % 4 % Eosinophils % 1 % Basophils % 1 % Neutrophils # 6.7 (1.3-7.7) k/uL Lymphocytes # 1.7 (1.0-4.8) k/uL Monocytes # 0.4 (0-1.0) k/uL Eosinophils # 0.1 (0-0.7) k/uL Basophils # 0.1 (0-0.2) k/uL Sodium 134 L (137-145) mmol/L Potassium 5.3 H (3.5-5.1) mmol/L Chloride 109 H (98-107) mmol/L Carbon Dioxide 22 (22-30) mmol/L Anion Gap 3 mmol/L BUN 6 L (7-17) mg/dL Creatinine 0.52 (0.52-1.04) mg/dL Est GFR (CKD-EPI)AfAm >90 (>60 ml/min/1.73 sqM) Est GFR (CKD-EPI)NonAf >90 (>60 ml/min/1.73 sqM) Glucose 82 (74-99) mg/dL Calcium 8.5 (8.4-10.2) mg/dL Magnesium 1.8 (1.6-2.3) mg/dL Total Bilirubin 1.1 (0.2-1.3) mg/dL AST 55 H (14-36) U/L ALT 43 H (4-34) U/L Alkaline Phosphatase 48 (38-126) U/L Total Protein 7.2 (6.3-8.2) g/dL Albumin 3.9 (3.5-5.0) g/dL Urine Color Yellow Urine Appearance Cloudy H (Clear) Urine pH 6.0 (5.0-8.0) Ur Specific [place] 1.025 (1.001-1.035) Urine Protein Trace H (Negative) Urine Glucose (UA) Negative (Negative) Urine Ketones 2+ H (Negative) Urine Blood Moderate H (Negative) Urine Nitrite Negative (Negative) Urine Bilirubin Negative (Negative) Urine Urobilinogen <2.0 (<2.0) mg/dL Ur Leukocyte Esterase Trace H (Negative) Urine RBC >182 H (0-5) /hpf Urine WBC 5 (0-5) /hpf Ur Squamous Epith Cells 3 (0-4) /hpf Urine Bacteria Moderate H (None) /hpf Hyaline Casts 1 (0-2) /lpf Urine Mucus Moderate H (None) /hpf Disposition Clinical Impression: Hyperemesis gravidarum, Urinary tract infection Disposition: HOME SELF-CARE Condition: Good Prescriptions: Cephalexin [Keflex] 500 mg PO Q6HR #28 cap Is patient prescribed a controlled substance at d/c from ED?: No Referrals: Mary Cui MD [Primary Care Provider] - 1-2 days Time of Disposition: 16:09
[2023-10-20] MEDS: SODIUM CHLORIDE 0.9% 1,000 ML IV ONE (14:00)
[2023-10-20] MEDS: SODIUM CHLORIDE 0.9% 500 ML 500 ML IV ONE (14:00)
[2023-10-20 14:10] VITALS: RESP 18; TEMP 97.9
[2023-10-20 14:22] LABS: Basophils # (A) 0.1 k/uL (0-0.2); Basophils % (A) 1 %; Eosinophils # (A) 0.1 k/uL (0-0.7); Eosinophils % (A) 1 %; HGB 12.9 gm/dL (11.4-16.0); Lymphocytes # (A) 1.7 k/uL (1.0-4.8); Lymphocytes % (A) 19 %; MCH 31.8 pg (25.0-35.0); MCV 96.2 fL (80.0-100.0); Mean Platelet Volume 7.5; Monocytes # (A) 0.4 k/uL (0-1.0); Monocytes % (A) 4 %; Neutrophils # (A) 6.7 k/uL (1.3-7.7); Neutrophils % (A) 75 %; Platelet Count 305 k/uL (150-450); RBC 4.05 m/uL (3.80-5.40); RDW 13.2 % (11.5-15.5); WBC 8.9 k/uL (3.8-10.6)
[2023-10-20 14:40] LABS: ALT 43 U/L (4-34); African American GFR (CKD) >90 (>60 ml/min/1.73 sqM); Anion Gap 3 mmol/L; Blood Urea Nitrogen 6 mg/dL (7-17); Calcium 8.5 mg/dL (8.4-10.2); Carbon Dioxide 22 mmol/L (22-30); Chloride 109 mmol/L (98-107); Non-African American GFR(CKD) >90 (>60 ml/min/1.73 sqM); Sodium 134 mmol/L (137-145)
[2023-10-20 14:54] LABS: AST 55 U/L (14-36); Albumin 3.9 g/dL (3.5-5.0); Alkaline Phosphatase 48 U/L (38-126); Glucose 82 mg/dL (74-99); Magnesium 1.8 mg/dL (1.6-2.3); Potassium 5.3 mmol/L (3.5-5.1); Total Bilirubin 1.1 mg/dL (0.2-1.3); Total Protein 7.2 g/dL (6.3-8.2)
[2023-10-20 15:36] LABS: Appearance,Urine Cloudy (Clear); Bacteria,Urine Moderate /hpf; Bilirubin,Urine Negative (Negative); Blood,Urine Moderate (Negative); Color,Urine Yellow; Glucose,Urine (UA) Negative (Negative); Hyaline Casts,Urine 1 /lpf (0-2); Ketones,Urine 2+ (Negative); Leukocyte Esterase,Urine Trace (Negative); Mucus,Urine Moderate /hpf; Nitrite,Urine Negative (Negative); Protein,Urine Trace (Negative); RBC,Urine >182 /hpf (0-5); Specific Gravity,Urine 1.025 (1.001-1.035); Squamous Epithelial Cell,Urine 3 /hpf (0-4); Urobilinogen,Urine <2.0 mg/dL (<2.0); WBC,Urine 5 /hpf (0-5)
[2023-10-20 16:03] VITALS: PULSE 74
[2023-10-20] MEDS: cefTRIAXone IN SWFI 1,000 MG/10 ML SYRINGE IVP STA (16:22)
[2023-10-20 16:55] VITALS: BP 97/54
== END 2023-10-20 16:28 | disposition home or self-care (01) ==
LOC: EC 13:21
DX: O21.0 Mild hyperemesis gravidarum (principal); O23.42 Unspecified infection of urinary tract in pregnancy, second trimester; N39.0 Urinary tract infection, site not specified; O99.322 Drug use complicating pregnancy, second trimester; F12.90 Cannabis use, unspecified, uncomplicated; O99.332 Smoking (tobacco) complicating pregnancy, second trimester; F17.290 Nicotine dependence, other tobacco product, uncomplicated; Z88.0 Allergy status to penicillin; Z88.8 Allergy status to other drugs, medicaments and biological substances; Z3A.15 15 weeks gestation of pregnancy
CPT/HCPCS: 36415; 80053; 81001; 83735; 85025; 93005; 96361; 96374; 99285

== ENCOUNTER 2023-11-23 15:52 | Emergency (ER) | payer OTHER ==
[2023-11-23 16:06] VITALS: RESP 18; TEMP 98.1
--- NOTE | 2023-11-23 16:38 | ED ---
SOB HPI - General Source: patient, RN notes reviewed Mode of arrival: ambulatory Limitations: no limitations <Alona Andres - Last Filed: 11/23/23 16:38> - General Source: RN notes reviewed, old records reviewed Mode of arrival: ambulatory Limitations: no limitations - History of Present Illness MD Complaint: shortness of breath, cough, "asthma attack", anxiety -: hour(s), days(s) Severity scale (1-10): 5 Quality: throbbing Consistency: intermittent Improves With: nothing Worsens With: exertion Known History Of: asthma Context: recent URI, anxiety, recent illness <Andrea Jeter - Last Filed: 12/03/23 22:35> - General Chief Complaint: Shortness of Breath Stated Complaint: SOB, 20 WEEKS PREG Time Seen by Provider: 11/23/23 16:38 - History of Present Illness Initial Comments: Quick note: 23-year-old female presented to the ER with a chief complaint of shortness of breath. She states she has been congested for the past 2 to 3 days and last night started experience shortness of breath. She is 20 weeks . She denies any history of asthma or blood clots. No recent fevers or chills. She has been taking [id number] Claritin without relief. (Alona Andres) This is a 23-year-old female to ER for evaluation of shortness of breath and congestion for few days now. She is 20 weeks . No significant chest pain no fevers (Andrea Jeter) - Related Data Home Medications Medication Instructions Recorded Confirmed Vestura 1 tab PO HS 10/08/21 10/08/21 Previous Rx's Medication Instructions Recorded Omeprazole [PriLOSEC] 40 mg PO DAILY #14 cap 12/27/21 Ondansetron Odt [Zofran Odt] 4 mg PO Q8HR PRN #10 tab 12/27/21 Sucralfate [Carafate] 1 gm PO BID #14 tablet 12/27/21 Cyclobenzaprine [Flexeril] 5 mg PO TID PRN #24 tablet 07/18/22 Ketorolac [Toradol] 10 mg PO Q8HR #15 tab 07/18/22 Cephalexin [Keflex] 500 mg PO Q6HR #28 cap 10/20/23 Allergies Allergy/AdvReac Type Severity Reaction Status Date / Time amoxicillin Allergy Rash/Hives Verified 11/23/23 16:06 dexamethasone AdvReac Unknown Verified 11/23/23 16:06 Review of Systems ROS Other: All systems not noted in ROS Statement are negative. <Alona Andres - Last Filed: 11/23/23 16:38> ROS Other: All systems not noted in ROS Statement are negative. <Andrea Jeter - Last Filed: 12/03/23 22:35> ROS Statement: Those systems with pertinent positive or pertinent negative responses have been documented in the HPI. Past Medical History Past Medical History: No Reported History, GERD/Reflux Additional Past Medical History / Comment(s): PCOS History of Any Multi-Drug Resistant Organisms: None Reported Past Surgical History: No Surgical Hx Reported Past Psychological History: No Psychological Hx Reported Smoking Status: Vaper Past Alcohol Use History: Occasional Past Drug Use History: None Reported, Marijuana <Alona Andres - Last Filed: 11/23/23 16:38> General Exam Limitations: no limitations <HeshamAlona guzmán - Last Filed: 11/23/23 16:38> General appearance: alert, in no apparent distress Head exam: Present: atraumatic, normocephalic, normal inspection Eye exam: Present: normal appearance, PERRL, EOMI. Absent: scleral icterus, conjunctival injection, periorbital swelling ENT exam: Present: normal exam, mucous membranes moist Neck exam: Present: normal inspection. Absent: tenderness, meningismus, lymphadenopathy Respiratory exam: Present: normal lung sounds bilaterally. Absent: respiratory distress, wheezes, rales, rhonchi, stridor Cardiovascular Exam: Present: regular rate, normal rhythm, normal heart sounds. Absent: systolic murmur, diastolic murmur, rubs, gallop, clicks GI/Abdominal exam: Present: soft, normal bowel sounds. Absent: distended, tenderness, guarding, rebound, rigid Extremities exam: Present: normal inspection, full ROM, normal capillary refill. Absent: tenderness, pedal edema, joint swelling, calf tenderness Back exam: Present: normal inspection Neurological exam: Present: alert, oriented X3, CN II-XII intact Psychiatric exam: Present: normal affect, normal mood Skin exam: Present: warm, dry, intact, normal color. Absent: rash <Andrea Jeter - Last Filed: 12/03/23 22:35> - General Exam Comments Initial Comments: Visual Physical Exam Vital signs reviewed General: Well-appearing, nontoxic, no acute distress. Head: Normocephalic, atraumatic Eyes: PERRLA, EOMI ENT: Airway patent Chest: Nonlabored breathing Skin: No visual rash, normal skin tone Neuro: Alert and oriented 3 Musculoskeletal: No gross abnormalities (Alona Andres) Course <CoronaAndrea Cardenas - Last Filed: 12/03/23 22:35> Vital Signs 11/23/23 11/23/23 16:04 19:01 Temperature 98.1 F Pulse Rate 92 101 H Respiratory 18 18 Rate Blood Pressure 105/70 97/69 O2 Sat by Pulse 98 99 Oximetry - Reevaluation(s) Reevaluation #1: Medical records reviewed (Andrea Jeter) Reevaluation #2: Patient symptoms improved (Andrea Jeter) Reevaluation #3: Patient informed of results and questions answered (Andrea Jeter) Reevaluation #4: Was pt. sent in by a medical professional or institution (, PA, TOWEL FOLDER, urgent care, hospital, or usp...) When possible be specific @ -no Did you speak to anyone other than the patient for history (EMS, parent, family, police, friend...)? What history was obtained from this source @ -no Did you review nursing and triage notes (agree or disagree)? Why? @ -agree Are old charts reviewed (outside hosp., previous admission, EMS record, old EKG, old radiological studies, urgent care reports/EKG's, usp records)? Report findings @ -yes Differential Diagnosis (chest pain, altered mental status, abdominal pain women, abdominal pain men, vaginal bleeding, weakness, fever, dyspnea, syncope, headache, dizziness, GI bleed, back pain, seizure, CVA, palpatations, mental health, musculoskeletal)? @ -prior EKG interpreted by me (3pts min.). @ -no X-rays interpreted by me (1pt min.). @ -yes negative for acute disease CT interpreted by me (1pt min.). @ -no U/S interpreted by me (1pt. min.). @ -no What testing was considered but not performed or refused? (CT, X-rays, U/S, labs)? Why? @ -none What meds were considered but not given or refused? Why? @ -none Did you discuss the management of the patient with other professionals (professionals i.e. , PA, TOWEL FOLDER, lab, RT, psych nurse, medical social consultant, jukebox routeman, teacher, [place] police officer, ed case manager)? Give summary @ -no Was smoking cessation discussed for >3mins.? @ -no Was critical care preformed (if so, how long)? @ -no Were there social determinants of health that impacted care today? How? (Homelessness, low income, unemployed, alcoholism, drug addiction, transportation, low edu. Level, literacy, decrease access to med. care, care home, rehab)? @ -none Was there de-escalation of care discussed even if they declined (Discuss DNR or withdrawal of care, Hospice)? DNR status @ -no What co-morbidities impacted this encounter? (DM, HTN, Smoking, COPD, CAD, Cance r, CVA, ARF, Chemo, Hep., AIDS, mental health diagnosis, sleep apnea, morbid obesity)? @ -none Was patient admitted / discharged? Hospital course, mention meds given and route, prescriptions, significant lab abnormalities, going to OR and other pertinent info. @ - 23 female with shortness of breath symptoms improved throughout ER stay patient feels well can be discharged home Discharge Undiagnosed new problem with uncertain prognosis? @ -no Drug Therapy requiring intensive monitoring for toxicity (Heparin, Nitro, Insulin, Cardizem)? @ -no Were any procedures done? @ -no Diagnosis/symptom? @ -Asthma Acute, or Chronic, or Acute on Chronic? @ -Acute Uncomplicated (without systemic symptoms) or Complicated (systemic symptoms)? @ -Complicated Side effects of treatment? @ -no Exacerbation, Progression, or Severe Exacerbation? @ -exacerbation Poses a threat to patient's life @ -yes with respiratory distress (Andrea Jeter) Reevaluation #5: Differential Dyspnea: Coronary syndrome, arrhythmia, tamponade, asthma, COPD, pulmonary embolism, pneumonia, pneumothorax, pulmonary effusion, anaphylaxis, diabetic ketoacidosis, flailed chest, pulmonary contusion, diaphragmatic rupture, anemia, neuromuscular, this is not meant to be an all-inclusive list. (Andrea Jeter) Medical Decision Making <Alona Andres - Last Filed: 11/23/23 16:38> <Andrea Jeter - Last Filed: 12/03/23 22:35> - Medical Decision Making I performed the quick note portion of this chart. Electronically signed by Alona Andres PA-C (Alona Andres) 23 female with shortness of breath symptoms improved throughout ER stay patient feels well can be discharged home (Andrea Jeter) - Lab Data Lab Results 11/23/23 11/23/23 Range/Units 17:41 18:46 Urine Color Light Yellow Urine Appearance Cloudy H (Clear) Urine pH 6.0 (5.0-8.0) Ur Specific [place] 1.019 (1.001-1.035) Urine Protein Negative (Negative) Urine Glucose (UA) Negative (Negative) Urine Ketones Negative (Negative) Urine Blood Negative (Negative) Urine Nitrite Negative (Negative) Urine Bilirubin Negative (Negative) Urine Urobilinogen <2.0 (<2.0) mg/dL Ur Leukocyte Esterase Large H (Negative) Urine RBC 2 (0-5) /hpf Urine WBC 1 (0-5) /hpf Ur Squamous Epith Cells 3 (0-4) /hpf Urine Bacteria Few H (None) /hpf Urine Mucus Rare H (None) /hpf Influenza Type A (PCR) Not Detected (Not Detectd) Influenza Type B (PCR) Not Detected (Not Detectd) RSV (PCR) Not Detected (Not Detectd) SARS-CoV-2 (PCR) Not Detected (Not Detectd) Disposition <Alona Andres - Last Filed: 11/23/23 16:38> Is patient prescribed a controlled substance at d/c from ED?: No Time of Disposition: 18:50 <Andrea Jeter - Last Filed: 12/03/23 22:35> Clinical Impression: Shortness of breath during Disposition: HOME SELF-CARE Condition: Good Instructions (If sedation given, give patient instructions): (ED) Referrals: Mary Cui MD [Primary Care Provider] - 1-2 days
--- NOTE | 2023-11-23 18:04 | XR ---
EXAMINATION TYPE: XR chest 2V DATE OF EXAM: 11/23/2023 5:21 PM CLINICAL INDICATION:Female, 23 years old with history of shortness of breath; [facility] COMPARISON: 10/09/2022. TECHNIQUE: XR chest 2V Frontal and lateral views of the chest. FINDINGS: Lungs/Pleura: There is no evidence of pleural effusion, focal consolidation, or pneumothorax. Pulmonary vascularity: Unremarkable. Heart/mediastinum: Cardiomediastinal silhouette is unremarkable. Musculoskeletal: No acute osseous pathology. IMPRESSION: No acute cardiopulmonary disease/process.
[2023-11-23 19:02] VITALS: BP 97/69; PULSE 101
[2023-11-23 19:41] LABS: Appearance,Urine Cloudy (Clear); Bacteria,Urine Few /hpf; Bilirubin,Urine Negative (Negative); Blood,Urine Negative (Negative); Color,Urine Light Yellow; Glucose,Urine (UA) Negative (Negative); Ketones,Urine Negative (Negative); Leukocyte Esterase,Urine Large (Negative); Mucus,Urine Rare /hpf; Nitrite,Urine Negative (Negative); Protein,Urine Negative (Negative); RBC,Urine 2 /hpf (0-5); Specific Gravity,Urine 1.019 (1.001-1.035); Squamous Epithelial Cell,Urine 3 /hpf (0-4); Urobilinogen,Urine <2.0 mg/dL (<2.0); WBC,Urine 1 /hpf (0-5)
== END 2023-11-23 19:09 | disposition home or self-care (01) ==
LOC: EC 15:52
DX: O99.512 Diseases of the respiratory system complicating pregnancy, second trimester (principal); R06.02 Shortness of breath; O99.332 Smoking (tobacco) complicating pregnancy, second trimester; F17.290 Nicotine dependence, other tobacco product, uncomplicated; Z3A.20 20 weeks gestation of pregnancy; Z88.0 Allergy status to penicillin; Z88.8 Allergy status to other drugs, medicaments and biological substances
CPT/HCPCS: 71046; 81001; 87636; 99285

== ENCOUNTER 2024-03-12 02:30 | Outpatient (CLI) | payer OTHER ==
[2024-03-12] MEDS: FAMOTIDINE 20 MG/2 ML VIAL IV STA (03:35)
[2024-03-12] MEDS: ONDANSETRON 4 MG/2 ML VIAL IM STA (03:35)
[2024-03-12] MEDS: LACTATED RINGERS 1,000 ML IV ONE (03:36)
[2024-03-12] MEDS: ONDANSETRON 4 MG/2 ML VIAL IVP STA (03:41)
[2024-03-12 04:55] VITALS: BP 113/66; PULSE 100; RESP 16; TEMP 98.6
--- NOTE | 2024-03-22 09:59 | P.MSEPDOC ---
Presenting Problems - Arrival Data Date of Arrival on Unit: 03/12/24 Time of Arrival on Unit: 02:30 Mode of Transport: Ambulatory - Complaint OB-Reason for Admission/Chief Complaint: Other Comment: Patient arrived to family triage stating she is having upper GI pain. Patient states she vomited 1 our ago and had diarrhea. Patient is DOM and sees a supervisor [facility] through [facility] Neetu payne supervisor [facility]. Patient denies any complication with this . Patient denies any leaking of vaginal fluid and is feeling baby move. Patients pain is 7/10 upper mid abdomen intermittently Medical History - Information : 2 Para: 1 Term: 0 : 1 Abortions: Spontaneous or Elective: 0 Number of Living Children: 1 - Gestational Age Gestational Age by LEROY (wks/days): 36 Weeks and 0 Days Review of Systems - Review of Systems Constitutional: No problems Breast: No problems ENT: No problems Cardiovascular: No problems Respiratory: No problems Gastrointestinal: No problems Genitourinary: No problems Musculoskeletal: No problems Neurological: No problems Skin: No problems Vital Signs - Temperature Temperature: 98.6 F Temperature Source: Oral - Pulse Right Marketing Pr Intern Pulse Rate: 100 Pulse Assessment Method: Pulse Oximetry - Respirations Respiratory Rate: 16 Oxygen Delivery Method: Room Air O2 Sat by Pulse Oximetry: 97 - Blood Pressure Right Arm Blood Pressure: 113/66 Blood Pressure Mean: 81 Blood Pressure Source: Automatic Cuff Medical Screen Scoring - Cervical Exam Dilation (cm): 1.0 Effacement (%): 50 Station: -3 Membranes: Intact - Uterine Contractions Frequency From (mins): 2 Frequency To (mins): 5 Duration From (seconds): 40 Duration To (seconds): 70 Intensity: Mild Resting: Soft to palpation - Assessment - Baby A Baseline FHR: 130 Heart Rate - NICHD Category: Category I (Normal) NST: Reactive Physician Notification - Physician Notified Physician Notified Date: 03/12/24 Physician Notified Time: 03:15 Physician: Laura Vargas New Order Received: Yes - Notification Comment Comment: Rn spoke with Dr. Vargas regarding patients HX, cervical check FHR cat 1, contractions, Upper GI pain, nausea and vomiting that happened prior to patients arrival. Dr. Vargas ordered IV start LR bolus, Zofran 4mg IV, Pepcid 20mg IV. Dr. Vargas gave orders to RN if patient feels better after medication she can be discharged Maternal Triage Index - Non-Urgent/Priority 4 Non-Urgent Priority 4: Yes Criteria Met for Priority 4: Patient arrived to family triage stating she is having upper GI pain. Patient states she vomited 1 our ago and had diarrhea. Patient is DOM and sees a supervisor [facility] through [facility] Neetu Costa a supervisor [facility]. Patient denies any complication with this . Patient denies any leaking of vaginal fluid and is feeling baby move. Patients pain is 7/10 upper mid abdomen intermittently Disposition - Disposition OB Disposition: Discharge to home Discharge Date: 03/12/24 Discharge Time: 04:08 I agree with the RN Medical Screening Exam: Yes Case reviewed; plan agreed upon as documented in EMR&OBIX.: Yes Diagnosis: RELATED CONDITIONS, UNSPECIFIED, SECOND TRIMESTER
== END 2024-03-12 04:08 | disposition home or self-care (01) ==
LOC: FBPOP 02:30
PROVIDERS: ATTEND Obstetrics & Gynecology Obstetrics
CPT/HCPCS: 36415; 59025; 96360; 96367; 96375; 99214

== ENCOUNTER 2024-03-25 15:01 | Inpatient (IN) | payer OTHER ==
[2024-03-25] MEDS ORDERED: OXYTOCIN 10 UNIT/ML 1 ML VIAL IM PRN (16:37)
[2024-03-25] MEDS ORDERED: TRANEXAMIC 1,000 MG/100ML-NACL 1,000 MG in EMPTY BAG 1 BAG IV PRN (16:37)
[2024-03-25] MEDS ORDERED: miSOPROStoL 200 MCG TAB RECTAL PRN (16:37)
[2024-03-25] MEDS ORDERED: miSOPROStoL 200 MCG TAB PO PRN (16:37)
[2024-03-25] MEDS ORDERED: LIDOCAINE 0.5% (PF) 5 MG/ML (50 ML SDV) SQ PRN (16:37)
[2024-03-25] MEDS ORDERED: TERBUTALINE 1 MG/ML VIAL SQ PRN (16:37)
[2024-03-25] MEDS ORDERED: CARBOPROST TROMETHAMINE 250 MCG/ML 1 ML AMP IM PRN (16:37)
[2024-03-25] MEDS ORDERED: METHYLERGONOVINE 0.2 MG/ML 1 ML AMP IM PRN (16:37)
[2024-03-25] MEDS: LACTATED RINGERS 1,000 ML IV SCH ×2 (17:02→17:37)
[2024-03-25 17:16] LABS: Basophils # (A) 0.1 k/uL (0-0.2); Basophils % (A) 1 %; Eosinophils # (A) 0.1 k/uL (0-0.7); Eosinophils % (A) 1 %; HCT 40.4 % (34.0-46.0); HGB 13.3 gm/dL (11.4-16.0); Lymphocytes # (A) 1.9 k/uL (1.0-4.8); Lymphocytes % (A) 20 %; MCH 33.1 pg (25.0-35.0); MCV 100.5 fL (80.0-100.0); Mean Platelet Volume 7.1; Monocytes # (A) 0.5 k/uL (0-1.0); Monocytes % (A) 5 %; Neutrophils # (A) 6.6 k/uL (1.3-7.7); Neutrophils % (A) 71 %; Platelet Count 416 k/uL (150-450); RBC 4.02 m/uL (3.80-5.40); WBC 9.4 k/uL (3.8-10.6)
[2024-03-25] MEDS ORDERED: SODIUM CHLORIDE 0.9% 250 ML BAG ONE (17:35)
[2024-03-25] MEDS ORDERED: fentaNYL (PF) 50 MCG/ML 5 ML AMP ONE (17:35)
[2024-03-25] MEDS ORDERED: ROPIVACAINE 5 MG/ML 30 ML VIAL ONE (17:35)
--- NOTE | 2024-03-25 18:05 | P.HPOB ---
History of Present Illness H&P Date: 03/25/24 Chief Complaint: labor Ms. Austin campos 24 year old at 37 weeks and 6 days with regular care at [facility] with Barby Costa CNM who is having regul ar uterine contractions and found to be in labor. Her has been uncomplicated. Per the patient, 1 hour GTT was wnl and GBS is negative. Records from provider are pending. Obstetric history: 1 vaginal delivery at 34 weeks requiring 2-week NICU admission for blood glucose instability, male, 5#3oz. Past Medical History Past Medical History: No Reported History, GERD/Reflux Additional Past Medical History / Comment(s): PCOS History of Any Multi-Drug Resistant Organisms: None Reported Past Surgical History: No Surgical Hx Reported Past Anesthesia/Blood Transfusion Reactions: No Reported Reaction Past Psychological History: No Psychological Hx Reported Smoking Status: Vaper Past Alcohol Use History: None Reported Past Drug Use History: None Reported - Past Family History Mother Family Medical History: No Reported History Medications and Allergies Home Medications Medication Instructions Recorded Confirmed Type Aspirin 81 mg PO DAILY 03/12/24 03/25/24 History Omeprazole 20 mg PO DAILY 03/12/24 03/25/24 History Vit No.179/Iron/Folic 1 tab PO DAILY 03/12/24 03/25/24 History [ Tablet] Metoclopramide [Reglan] 10 mg PO DAILY 03/25/24 03/25/24 History Allergies Allergy/AdvReac Type Severity Reaction Status Date / Time amoxicillin Allergy Rash/Hives Verified 03/25/24 15:22 Exam Vital Signs Temp Pulse Resp BP 03/25/24 17:20 96.4 F L 91 16 118/68 Intake and Output 03/25/24 03/25/24 03/25/24 06:59 14:59 22:59 Other: Weight 108.409 kg Focused physical exam is performed. This is a healthy-appearing in no apparent distress. Breathing is non-labored. Abdomen is gravid and non-tender. Cervical exam is 4/70/-2. Extremities non-tender and non-edematous. heart tones are Category I and tocometer is graphing contractions every 2-4 minutes. Results Result Diagrams: 03/25/24 17:00 Abnormal Lab Results - Last 24 Hours (Table) 03/25/24 Range/Units 17:00 MCV 100.5 H (80.0-100.0) fL Assessment and Plan Assessment: 24 year old at 37 weeks and 6 days in spontaneous labor Plan: Admit, clear liquid diet, epidural prn, continuous EFM and tocometer, anticipate vaginal delivery.
[2024-03-25 18:47] LABS: Amphetamine Screen,Urine Not Detected (NotDetected); Barbiturate Screen,Urine Not Detected (NotDetected); Benzodiazepines Screen,Urine Not Detected (NotDetected); Cocaine Screen,Urine Not Detected (NotDetected); Methadone Screen, Urine Not Detected (NotDetected); Opiate Screen,Urine Not Detected (NotDetected); Oxycodone Screen, Urine Not Detected (NotDetected); Phencyclidine Screen,Urine Not Detected (NotDetected); Tricyclic Antidepressant,Urine Not Detected (NotDetected); Urn Cannabinoid Scrn Not Detected (NotDetected)
[2024-03-25] MEDS: OXYTOCIN 30 UNITS/500 ML NS 30 UNIT in SALINE 1 500ML.BAG IV SCH (22:09)
[2024-03-25] MEDS ORDERED: diphenhydrAMINE 50 MG CAP PO PRN (22:34)
[2024-03-25] MEDS ORDERED: ZOLPIDEM 5 MG TAB PO PRN (22:34)
[2024-03-25] MEDS ORDERED: HYDROCORTISONE 2.5% RECTAL CREAM 30 GM TUBE RECTAL PRN (22:34)
[2024-03-25] MEDS ORDERED: diphenhydrAMINE 25 MG CAP PO PRN (22:34)
[2024-03-25] MEDS ORDERED: diphenhydrAMINE 50 MG/ML 1 ML VIAL IVP PRN ×2 (22:34)
[2024-03-25] MEDS ORDERED: LANOLIN CREAM 1 GM TUBE TOPICAL PRN (22:34)
--- NOTE | 2024-03-25 22:34 | P.PROBDLV ---
Vaginal Delivery Note - . Vaginal Delivery Note: DATE OF SERVICE: 03/25/2024 PROCEDURE: Normal Vaginal Delivery ATTENDING: Dr. Elba Dumas MD ESTIMATED BLOOD LOSS: 100 mL FINDINGS: VFI, Apgars 8/9. Weight 6 pounds and 13 ounces (3110 grams) PROCEDURE: Ms. Avila is a 24 year old at 37 weeks and 6 days presenting to labor and delivery for spontaneous labor. The has been uncomplicated. For further details, please review the admitting H&P. The patient received epidural anesthesia per her request. The patient was completely dilated at 2156. She pushed effectively with category I heart tones and broguht the head to a crown. The head was delivered, one nuchal cord was reduced, and a viable female infant was delivered at 2205. The infant was placed on the maternal abdomen and bulb suctioned. The infant was noted to be spontaneously crying. Cord was clamped and cut after a 30-second delay. The infant was handed off to the pediatric team. Placenta was delivered whole with gentle cord traction at 2209. Oxytocin was started to facilitate uterine tone. Uterine fundus was found to be firm and below the umbilicus upon fundal massage. Thorough examination of the cervix, vagina, periurethral area, and perineum revealed no lacerations. The patient is stable and allowed to begin the bonding process.
[2024-03-25] MEDS: BENZOCAINE/MENTHOL SPRAY 1 GM/SPRAY AEROSOL TOPICAL PRN (23:03)
[2024-03-26] MEDS: SIMETHICONE 80 MG CHEWABLE PO PRN (01:08)
[2024-03-26] MEDS: ACETAMINOPHEN TAB 500 MG TAB PO SCH (02:36)
[2024-03-26] MEDS: IBUPROFEN 800 MG TAB PO SCH (02:37)
[2024-03-26 07:27] LABS: Basophils # (A) 0.1 k/uL (0-0.2); Basophils % (A) 1 %; Eosinophils # (A) 0.1 k/uL (0-0.7); Eosinophils % (A) 1 %; HCT 35.6 % (34.0-46.0); HGB 11.7 gm/dL (11.4-16.0); Lymphocytes # (A) 1.9 k/uL (1.0-4.8); Lymphocytes % (A) 17 %; MCH 33.2 pg (25.0-35.0); MCHC 32.8 g/dL (31.0-37.0); MCV 101.3 fL (80.0-100.0); Macrocytosis Slight; Monocytes # (A) 0.6 k/uL (0-1.0); Monocytes % (A) 5 %; Neutrophils # (A) 8.6 k/uL (1.3-7.7); Neutrophils % (A) 74 %; Platelet Count 318 k/uL (150-450); RBC 3.52 m/uL (3.80-5.40); RDW 13.2 % (11.5-15.5); WBC 11.6 k/uL (3.8-10.6)
[2024-03-26] MEDS: SENNOSIDES-DOCUSATE SODIUM 1 EACH TAB PO SCH (08:00)
--- NOTE | 2024-03-26 08:51 | P.DS ---
Providers Date of admission: 03/25/24 16:32 Expected date of discharge: 03/26/24 Attending physician: Elba Dumas MD Primary care physician: Stated None Hospital Course: Ms. Avila is a 24 year old now PPD#1 s/p normal spontaneous vaginal delivery at 37 weeks and 6 days. Her delivery was uncomplicated. The patient is doing well this morning and had no acute events overnight. She has no complaints this morning. She reports minimal lochia, passing flatus, voiding without difficulty, ambulating, and eating/drinking without nausea or vomiting. Infant doing well at bedside. She denies chest pain, shortness of breathing, fevers, or chills overnight. She denies pain or swelling in the legs. restrictions are reviewed with the patient including pelvic rest for 6 weeks>. The patient is encouraged to call the office if she experiences any heavy bleeding, foul-smelling discharge, breast complaints, or any if she has any other concerns. She will follow up in the office in 6 weeks for appointment. All questions are answered. Assessment: 24 year old now PPD#1 s/p Patient Condition at Discharge: Good Plan - Discharge Summary New Discharge Prescriptions: New Docusate [Colace] 100 mg PO BID PRN #60 capsule PRN Reason: Constipation Ibuprofen [Motrin] 600 mg PO Q6HR PRN #30 tab PRN Reason: Mild Pain (Scale 1 To 3) No Action Aspirin 81 mg PO DAILY Vit No.179/Iron/Folic [ Tablet] 1 tab PO DAILY Omeprazole 20 mg PO DAILY Metoclopramide [Reglan] 10 mg PO DAILY Discharge Medication List Aspirin 81 mg PO DAILY 03/12/24 [History] Omeprazole 20 mg PO DAILY 03/12/24 [History] Vit No.179/Iron/Folic [ Tablet] 1 tab PO DAILY 03/12/24 [History] Metoclopramide [Reglan] 10 mg PO DAILY 03/25/24 [History] Docusate [Colace] 100 mg PO BID PRN #60 capsule 03/26/24 [Rx] Ibuprofen [Motrin] 600 mg PO Q6HR PRN #30 tab 03/26/24 [Rx] Follow up Appointment(s)/Referral(s): Elba Dumas MD [STAFF PHYSICIAN] - 6 Weeks Activity/Diet/Wound Care/Special Instructions: Instructions 1. Do not begin any exercise program for 3 weeks. 2. Do not resume sexual relations for 6 weeks or longer if uncomfortable. 3. You may take tub baths or showers at any time. 4. You may use tampons if desired after 6 weeks. 5. Keep any areas repaired with stitches clean and dry. 6. If you are not nursing, wear a good fitting, supportive bra during the day and limit fluid intake for at least 1 week to prevent breast engorgement. 7. Call the office, , within the next week to make appointment for your 6 week checkup if it has not already been made. 8. Report any of the following occurrences to the doctor promptly: a. Heavy, excessive bleeding b. Chills, fever c. Burning or frequency of urination d. Pain or redness and breasts if nursing e. Increasing pain or swelling of vulva (stitches). In addition to the above instructions, the following additional should be followed: 1. No heavy lifting or straining (exercising) until after 6 week checkup. 2. Keep abdominal incision clean and dry: You may wear a dressing if more comfortable. 3. Make office appointment for 2 weeks after delivery date. Discharge Disposition: HOME SELF-CARE
[2024-03-26 10:17] VITALS: RESP 20
[2024-03-26 15:40] VITALS: TEMP 97.9
[2024-03-26 20:53] VITALS: BP 118/73; PULSE 89
--- NOTE | 2024-03-29 11:46 | P.MSEPDOC ---
Presenting Problems - Arrival Data Date of Arrival on Unit: 03/25/24 Time of Arrival on Unit: 16:37 Mode of Transport: Ambulatory - Complaint OB-Reason for Admission/Chief Complaint: Possible Onset of Labor Medical History - Information : 2 Para: 1 Term: 0 : 1 Abortions: Spontaneous or Elective: 0 Number of Living Children: 1 - Gestational Age Gestational Age by LEROY (wks/days): 38 Weeks and 2 Days - History Complications: Smoker Review of Systems - Review of Systems Constitutional: No problems Breast: No problems ENT: No problems Cardiovascular: No problems Respiratory: No problems Gastrointestinal: No problems Genitourinary: No problems Musculoskeletal: No problems Neurological: No problems Skin: No problems Vital Signs - Temperature Temperature: 97.9 F Temperature Source: Oral - Pulse Right Sitting Pulse Rate: 89 Pulse Assessment Method: Automatic Cuff - Respirations Respiratory Rate: 20 Oxygen Delivery Method: Room Air - Blood Pressure Right Arm Blood Pressure: 118/73 Blood Pressure Mean: 88 Blood Pressure Source: Automatic Cuff Medical Screen Scoring - Cervical Exam Dilation (cm): 4 Effacement (%): 70 Station: -2 Membranes: Intact - Uterine Contractions Frequency From (mins): 2 Frequency To (mins): 4 Duration From (seconds): 50 Duration To (seconds): 60 Intensity: Moderate Resting: Soft to palpation - Assessment - Baby A Baseline FHR: 130 Heart Rate - NICHD Category: Category I (Normal) NST: Reactive Physician Notification - Physician Notified Physician Notified Date: 03/25/24 Physician Notified Time: 16:37 Physician: Elba Dumas Order Received: Yes Maternal Triage Index - Prompt/Priority 3 Prompt Priority 3: Yes Criteria Met for Priority 3: reactive nst, contractions 2-4 minutes, cervical change Disposition - Disposition OB Disposition: Admit, LDRP Suite Discharge Date: 03/26/24 Discharge Time: 23:30 I agree with the RN Medical Screening Exam: Yes Case reviewed; plan agreed upon as documented in EMR&OBIX.: Yes Diagnosis: ENCOUNTER FOR FULL-TERM UNCOMPLICATED DELIVERY
== END 2024-03-26 23:30 | disposition home or self-care (01) | DRG 807 ==
LOC: FBPOP 15:01 → 4FBP 16:32
PROVIDERS: ADMIT Obstetrics & Gynecology; ATTEND Obstetrics & Gynecology
PROC: 10E0XZZ Delivery of Products of Conception, External Approach (ICD-10-PCS; principal; 2024-03-25)
DX: O99.334 Smoking (tobacco) complicating childbirth (principal); Z37.0 Single live birth; F17.210 Nicotine dependence, cigarettes, uncomplicated; Z3A.37 37 weeks gestation of pregnancy; Z79.82 Long term (current) use of aspirin; Z87.51 Personal history of pre-term labor; Z87.42 Personal history of other diseases of the female genital tract
CPT/HCPCS: 59025; 80306; 85025; 86850; 86900; 86901; 99213